=== PATIENT | male | born 1985 | race Two or more races ===

== ENCOUNTER → 2025-04-23 | Outpatient (CLI) | payer MEDICAID, SELFPAY ==
--- NOTE | 2025-04-23 12:00 | XR_ITS ---
Examinations: MRA brain without intravenous contrast. 3-D vascular reconstructions Date and time of exam: April 23, 2025, 1219 hours INDICATIONS: Family history stroke Technique: MRA brain images without contrast obtained, including 3-D postprocessing, vascular maximum intensity projection images Findings: Petrous juxtasellar portions of the internal carotid arteries fill Juxtasellar supraclinoid portions internal carotid arteries intact M1 segments middle cerebral arteries middle cerebral artery trifurcation vessels fill with no aneurysm or dissection Intracranial vertebral arteries basilar artery and posterior cerebral branches fill with no large vessel occlusions IMPRESSION: No significant cerebral arterial stenoses No large vessel arterial occlusions or thrombus
--- NOTE | 2025-04-23 12:00 | XR_ITS ---
EXAMINATION: MR brain head angiography with intravenous contrast Date and time: April 23, 2025, 1228 hours INDICATIONS: Family history, brother stroke TECHNIQUE AND FINDINGS: Multiple MR angiographic images brain head obtained post intravenous administration 19 cc gadolinium 3D angiographic reconstructions, 3D postprocessing including maximum intensity projection images Distal internal carotid arteries, petrous and supraclinoid portions internal carotid arteries intact M1 segments middle cerebral arteries middle cerebral artery trifurcation vessels demonstrate no thrombus occlusions or dissection Intracranial right and left vertebral arteries basilar artery and posterior cerebral branches fill with no large vessel occlusions IMPRESSION: Negative for cerebral large vessel occlusions, thrombus, dissection or cerebral aneurysm
== END | disposition home or self-care (01) ==
LOC: SMRI 11:53
PROVIDERS: PCP Nurse Practitioner Family; Referring Provider Nurse Practitioner Family; Visit Provider Nurse Practitioner Family
DX: Z82.3 Family history of stroke (principal)
CPT/HCPCS: 70543; 70544; 70545; A9577